=== PATIENT | female | born 1980 | race Caucasian/White ===

== ENCOUNTER 2022-09-19 20:34 | Emergency (ER) | payer SELFPAY ==
[2022-09-19] VITALS (14 sets, daily range): BP systolic 164–171; BP diastolic 84–112; PULSE 79–105; RESP 12–21; TEMP 36.6; O2SAT 96–100
--- NOTE | ~2022-09-19 | XR_ITS ---
EXAMINATION: XR chest 1V portable Exam Date/Time: 09/19/2022 22:10 CDT HISTORY: MIDSTERNAL CHEST PRESSURE,PAIN SINCE YESTERDAY. HX PALPITATI Comparison: None available. RESULT: Lines, tubes, and devices: None. Lungs and pleura: Clear. Calcified bilateral granulomas. Cardiomediastinal silhouette: Normal. Other: No acute osseous or upper abdominal finding. IMPRESSION: No acute cardiopulmonary process. Reviewed, dictated and finalized at location K.
--- NOTE | 2022-09-19 20:35 | ED.CHESTPAIN ---
HPI - Chest Pain General Chief Complaint: Chest Pain Stated Complaint: Chest Pain Source: patient Mode of arrival: ambulatory History of Present Illness HPI narrative: 35-year-old female with no significant past medical history presents to the ER with -- palpitation for the past 3 weeks -- chest discomfort for the past 2-3 days. Chest discomfort/ chest pain is rated as 2/10. No radiation. Is present at rest and with activity. No relation to coughing or deep breathing. MD complaint: chest pain and chest discomfort Onset (ago): day(s) ( Started 3 days ago) Timing of current episode: constant Prior episodes: No Onset: during rest and during exertion Pain location: substernal and left chest Pain radiation: none Severity: mild Pain scale (0-10): 2 Quality: heaviness Relieving factors: nothing Exacerbating factors: nothing Treatment prior to arrival: none Risk Factors Coronary artery disease risk factors: family history of CAD before age 50 Pulmonary embolism risk factors: oral contracepetive use Related Data On Oral Contraceptives: Yes Review of Systems Review of Systems: All systems reviewed & are unremarkable except as noted in HPI and below Constitutional: Constitutional: Reports as per HPI and Reports no additional constitutional complaints Eyes: Eyes: Reports as per HPI and Reports no additional eye complaints ENT: Reports system reviewed and no additional complaints, except as documented and Reports as per HPI Cardiovascular: Cardiovascular: Reports as per HPI, Reports no additional cardiovascular complaints and Reports chest pain Comments: palpitation Respiratory: Respiratory: Reports as per HPI and Reports no additional respiratory complaints Gastrointestinal: Gastrointestinal: Reports as per HPI and Reports no additional gastrointestinal complaints Genitourinary: Genitourinary: Reports no additional female genitourinary complaints and Reports as per HPI Musculoskeletal: Musculoskeletal: Reports no additional musculoskeletal complaints and Reports as per HPI Integumentary/Breasts: Skin/Breast: Reports system reviewed and no additional complaints, except as docu and Reports as per HPI Neurologic: Reports system reviewed and no additional complaints, except as documented and Reports as per HPI Psychiatric: Psychiatric: Reports no additional psychiatric complaints and Reports as per HPI Endocrine: Endocrine: Reports no additional endocrine complaints and Reports as per HPI Hematologic/Lymphatic: Hematologic/Lymphatic: Reports no additional hematologic/lymphatic complaints and Reports as per HPI Allergic/Immunologic: Allergic/Immunologic: Reports no additional allergic/immunologic complaints and Reports as per HPI [facility] Past Medical History Medical History (Updated 09/19/22 @ 22:45 by Herberth Bazan MD) Palpitation Exam Narrative: hypertension with a blood pressure of 168/97 with tachycardia. Const: General: healthy appearing and no acute distress Nutritional Appearance: well nourished Orientation/consciousness: patient oriented x3 Limitations: no limitations HENMT: Head: normal to inspection Ears: external ears normal Face/Nose/Sinus: Normal external nose present Face and sinus: normal facial exam Mouth: Yes Normal oral and palatal mucosa present Throat: posterior oropharynx normal Eyes: Conjunctivae: conjunctivae normal Pupils: Equal, round and reactive pupils present EOM: EOMs intact bilaterally Direct Ophthalmoscopy: no photophobia Neck: Neck: normal visual inspection, no lymphadenopathy and no meningeal signs Chest: Chest palpation & inspection: normal inspection of the chest Resp: Effort & Inspection: normal respiratory effort Auscultation: clear to auscultation bilaterally Cardio: Rate: regular rate Rhythm: regular rhythm Heart sounds: Murmur heart sound present GI: GI Palp: Yes Soft to palpation Auscultation: normal bowel sounds Other: no tenderness/rigidity /rebound
--- NOTE | 2022-09-19 20:39 | ECG_ITS ---
Measurements Intervals [place] Rate: 102 P: 72 DE: 149 QRS: 78 QRSD: 103 T: 43 QT: 363 QTc: 475 Interpretive Statements SINUS TACHYCARDIA WITH FREQUENT VENTRICULAR PREMATURE COMPLEXES POSSIBLE LEFT ATRIAL ENLARGEMENT INCOMPLETE RIGHT BUNDLE BRANCH BLOCK MINIMAL ST DEPRESSION ABNORMAL ECG NO PREVIOUS ECG AVAILABLE FOR COMPARISON Electronically Signed On 09-20-2022 18:19:21 CDT by Tanmay Black M.D.
[2022-09-19 21:04] LABS: Basophils Absolute Auto 0.04 K/mm3 (0.00-0.10); Basophils Percent Auto 0.4 % (0.0-1.0); Eosinophils Absolute Auto 0.09 K/mm3 (0.02-0.50); Eosinophils Percent Auto 0.9 % (1.0-6.0); Hematocrit 37.4 % (35.0-49.0); Hemoglobin 12.2 g/dL (12.0-15.0); Immature Granulocyte Absolute 0.04 K/mm3 (0.00-0.00); Immature Granulocyte Percent A 0.4 % (0.0-0.0); Lymphocytes Absolute Auto 3.01 K/mm3 (1.10-4.50); Lymphocytes Percent Auto 30.7 % (18.0-42.0); Mean Corpuscular HGB Conc 32.6 g/dL (32.0-36.0); Mean Corpuscular Hemoglobin 27.5 pg (27.0-31.0); Mean Corpuscular Volume 84.2 fL (78.0-102.0); Mean Platelet Volume 10.4 fl (9.2-11.8); Monocytes Absolute Auto 0.65 K/mm3 (0.10-0.90); Monocytes Percent Auto 6.6 % (2.0-11.0); Platelet Count Result 322 K/mm3 (150-420); Red Blood Count 4.44 M/mm3 (4.20-5.40); Red Cell Distribution Width 12.7 % (11.6-14.4); White Blood Count 9.8 K/mm3 (4.8-10.8)
[2022-09-19 21:18] LABS: Appearance Urine Clear (Clear); Bilirubin Urine Negative (Negative); Color Urine Light Yellow (Yellow); Glucose Urine UA Negative (Negative); Ketones Urine Negative (Negative); Leukocyte Esterase Ur Negative LEU/UL (Negative); Nitrate Urine Negative (Negative); Protein Urine Negative (Negative); Specific Grav Ur <= 1.005 (1.010-1.020); Urobilinogen Urine 0.2 mg/dL (0.2-1.0)
[2022-09-19 21:18] LABS: INR 0.9; Partial Thromboplastin Time 26.9 SEC (23.90-30.70); Prothrombin Time 10.3 Seconds (9.50-12.10)
[2022-09-19 21:19] LABS: D Dimer 0.42 mg/L (0.19-0.50)
[2022-09-19 21:23] LABS: Add Urine Microscopic? YES; Bacteria Urine Trace /hpf; Blood Urine Trace-lysed (Negative); RBC Urine 0-2 /hpf (0-2); Squamous Epithelial Cell Urine Rare /hpf (Few); WBC Urine 0-3 /hpf (0-3)
[2022-09-19 21:24] LABS: Pregnancy On Board Control Positive; Urine Pregnancy Test Negative
[2022-09-19 21:24] LABS: Lactic Acid Reflex 1.3 mmol/L (0.4-2.0)
[2022-09-19 21:29] LABS: Alanine Aminotransferase 20 U/L (14-59); Albumin Level 3.1 g/dL (3.4-5.0); Alkaline Phosphatase 78 U/L (46-116); Anion Gap 11 mmol/L (8-16); Aspartate Amino Transferase 17 U/L (15-37); Bilirubin,Total 0.2 mg/dL (0.00-1.00); Blood Urea Nitrogen 13 mg/dL (7-18); Calcium 8.9 mg/dL (8.5-10.1); Carbon Dioxide 26 mmol/L (21-32); Chloride 104 mmol/L (98-108); Estimated CRCL calculation 64 ml/min; Estimated Glomerular Filt Rate 45; Glucose 131 mg/dL (70-99); NT Pro B Type Natriuretic Pept 53 pg/mL (0-125); Osmolality Calculated 294 mOsm/kg (285-295); Potassium 3.3 mmol/L (3.5-5.1); Sodium 141 mmol/L (136-145); Troponin I 6.2 ng/L (0.00-60.4)
[2022-09-19 21:31] LABS: Thyroid Stimulating Hormone 1.95 uIU/mL (0.36-3.74)
[2022-09-19] MEDS: LACTATED RINGERS 1,000 ML 999 ML IV CONT (21:52)
[2022-09-19] MEDS: METOPROLOL TARTRATE 25 MG TABLET 12.5 MG PO (22:42)
[2022-09-19 22:54] LABS: Creatine Kinase 134 U/L (26-192)
== END 2022-09-19 23:05 | disposition home or self-care (01) ==
PROVIDERS: Emergency Provider Internal Medicine Critical Care Medicine
DX: R00.0 Tachycardia, unspecified (principal); I10 Essential (primary) hypertension; N28.9 Disorder of kidney and ureter, unspecified
CPT/HCPCS: 36415; 71045; 80053; 81001; 81025; 82550; 83605; 83880; 84443; 84484; 85025; 85380; 85610; 85730; 93005; 96360; 99283; A9270; J7120